=== PATIENT | female | born 1960 | race Caucasian/White ===

== ENCOUNTER 2016-12-18 10:03 | Outpatient (CLI) | payer MEDICARE ==
[2016-12-18] MEDS ORDERED: BARIUM SULFATE 135 ML BOTTLE PO ONE (11:21)
[2016-12-18] MEDS ORDERED: BARIUM SULFATE 176 GM BOTTLE PO ONE (11:21)
== END 2016-12-18 10:04 | disposition home or self-care (01) ==
DX: K22.8 Other specified diseases of esophagus (principal); K21.9 Gastro-esophageal reflux disease without esophagitis
CPT/HCPCS: 74247; A9270

== ENCOUNTER 2017-08-04 14:39 | Outpatient (CLI) | payer MEDICARE | END 2017-08-04 14:40 | disposition home or self-care (01) | LOC: SC 14:39 | PROVIDERS: ATTEND Nurse Practitioner Family | DX: G47.33 Obstructive sleep apnea (adult) (pediatric) (principal) | CPT/HCPCS: 99214; G0463; 99212 ==

== ENCOUNTER 2018-01-09 08:00 | Outpatient (CLI) | payer MEDICARE ==
[2018-01-13 12:41] LABS: CREATININE, URINE 1.55 g/24 h (0.63-2.50)
== END 2018-01-09 23:59 | disposition home or self-care (01) ==
LOC: LAB.WCP 08:00
PROVIDERS: ATTEND Family Medicine
DX: R73.01 Impaired fasting glucose (principal); E66.9 Obesity, unspecified; I10 Essential (primary) hypertension
CPT/HCPCS: 82530; 82570

== ENCOUNTER 2018-01-14 10:02 | Outpatient (CLI) | payer MEDICARE ==
--- NOTE | 2018-01-15 15:45 | MRI Report ---
EXAM: MRI BRAIN WITHOUT CONTRAST EXAM DATE: 01/14/2018 10:56 AM. CLINICAL HISTORY: Headache. Head pressure. Left-sided neck pain. COMPARISON: None. TECHNIQUE: Multiplanar, multisequence T1-weighted and fluid-sensitive MR sequences of the brain were performed. Sequences optimized for routine evaluation. Other: None. IV Contrast: None. FINDINGS: No cerebellar tonsillar ectopia is present. No abnormal diffusion signal or magnetic susceptibility is present in the brain parenchyma. Age appropriate prominence of the ventricles and sulci is noted. No extraaxial fluid collection is pr esent. Subcortical and deep white matter FLAIR hyperintensities are seen throughout the cerebral hemisphere white matter bilaterally. There is a frontal lobe predominance. No abnormal T2 or FLAIR hyperintense signal is seen in the brain stem or in either cerebellar hemisphere. Expected flow voids are seen in the major intracranial vessels at the skull base. No mass is present in either orbit. No abnormal T1 shortening is present in the brain parenchyma. No mass is present in either Meckel's cave. In expected flow void is seen in the superior sagittal si nus and in each transverse sinus. IMPRESSION: 1. No acute CVA. 2. No intracranial mass is identified by noncontrast MRI. 3. FLAIR hyperintensities in the cerebral hemisphere white matter bilaterally are nonspecific. Common ly, these are seen secondary to small vessel ischemic change or in association with certain headache syndromes. White matter lesions have been described in many other entities, including in demyelinatin g processes. No lesion typical of multiple sclerosis is identified on the current study. [facility] Referring Provider Line: [phone] SITE ID: [id number]
== END 2018-01-14 10:03 | disposition home or self-care (01) ==
LOC: DI 10:02
PROVIDERS: ATTEND Family Medicine
DX: R51 Headache (principal)
CPT/HCPCS: 70551

== ENCOUNTER 2018-02-07 09:28 | Outpatient (CLI) | payer MEDICARE ==
[2018-02-07 12:32] LABS: BASOPHILS % (AUTO) 0.8 %; EOSINOPHILS # (AUTO) 0.1 10^3/uL (0.0-0.7); EOSINOPHILS % (AUTO) 2.3 %; HGB - HEMOGLOBIN 13.6 g/dL (12.0-16.0); LYMPHOCYTES # (AUTO) 1.9 10^3/uL (1.5-3.5); LYMPHOCYTES % (AUTO) 33.9 %; MEAN CORPUSCULAR HEMOGLOBIN 27.1 pg (27.0-31.0); MEAN CORPUSCULAR HGB CONC 33.1 g/dL (32.0-36.0); MEAN CORPUSCULAR VOLUME 81.8 fL (81.0-99.0); MEAN PLATELET VOLUME 8.2 fL (7.9-10.8); MONOCYTES # (AUTO) 0.4 10^3/uL (0.0-1.0); MONOCYTES % (AUTO) 7.4 %; NEUTROPHILS # (AUTO) 3.1 10^3/uL (1.5-6.6); NEUTROPHILS % (AUTO) 55.6 %; PLT - PLATELET COUNT 215 10^3/uL (130-450); RED BLOOD COUNT 5.04 10^6/uL (4.20-5.40); RED CELL DISTRIBUTION WIDTH 15.8 % (12.0-15.0); WHITE BLOOD COUNT 5.7 x10^3/uL (4.8-10.8)
== END 2018-02-07 09:29 | disposition home or self-care (01) ==
LOC: LAB.WCP 09:28
DX: T84.84XA Pain due to internal orthopedic prosthetic devices, implants and grafts, initial encounter (principal)
CPT/HCPCS: 36415; 85025; 85651; 86140

== ENCOUNTER 2018-04-19 08:00 | Outpatient (CLI) | payer MEDICARE ==
[2018-04-19 19:09] LABS: BASOPHILS % (AUTO) 0.5 %; EOSINOPHILS # (AUTO) 0.1 10^3/uL (0.0-0.7); EOSINOPHILS % (AUTO) 1.4 %; LYMPHOCYTES # (AUTO) 1.6 10^3/uL (1.5-3.5); LYMPHOCYTES % (AUTO) 30.2 %; MEAN CORPUSCULAR HGB CONC 32.5 g/dL (32.0-36.0); MEAN CORPUSCULAR VOLUME 83.1 fL (81.0-99.0); MEAN PLATELET VOLUME 8.9 fL (7.9-10.8); MONOCYTES # (AUTO) 0.4 10^3/uL (0.0-1.0); MONOCYTES % (AUTO) 7.2 %; NEUTROPHILS # (AUTO) 3.2 10^3/uL (1.5-6.6); NEUTROPHILS % (AUTO) 60.7 %; PLT - PLATELET COUNT 185 10^3/uL (130-450); PT - PROTHROMBIN TIME 11.8 secs (9.9-12.6); RED CELL DISTRIBUTION WIDTH 15.5 % (12.0-15.0); WHITE BLOOD COUNT 5.3 x10^3/uL (4.8-10.8)
== END 2018-04-19 08:01 | disposition home or self-care (01) ==
LOC: LAB.WCP 08:00
PROVIDERS: ATTEND Plastic Surgery
DX: Z01.812 Encounter for preprocedural laboratory examination (principal)
CPT/HCPCS: 36415; 85025; 85610; 85730

== ENCOUNTER 2018-07-26 10:19 | Outpatient (CLI) | payer MEDICARE | END 2018-07-26 10:20 | disposition home or self-care (01) | LOC: SC 10:19 | PROVIDERS: ATTEND Nurse Practitioner Family | DX: G47.33 Obstructive sleep apnea (adult) (pediatric) (principal) | CPT/HCPCS: 99214; G0463; 99212 ==

== ENCOUNTER → 2018-09-21 | Outpatient (CLI) | payer MEDICARE ==
[2018-09-21 12:44] LABS: PT - PROTHROMBIN TIME 11.1 secs (9.9-12.6)
[2018-09-21 12:52] LABS: BASOPHILS % (AUTO) 0.6 %; EOSINOPHILS # (AUTO) 0.1 10^3/uL (0.0-0.7); EOSINOPHILS % (AUTO) 1.9 %; HGB - HEMOGLOBIN 13.3 g/dL (12.0-16.0); LYMPHOCYTES # (AUTO) 1.6 10^3/uL (1.5-3.5); LYMPHOCYTES % (AUTO) 29.1 %; MEAN CORPUSCULAR HEMOGLOBIN 27.2 pg (27.0-31.0); MEAN CORPUSCULAR HGB CONC 34.1 g/dL (32.0-36.0); MEAN CORPUSCULAR VOLUME 79.8 fL (81.0-99.0); MEAN PLATELET VOLUME 8.4 fL (7.9-10.8); MONOCYTES # (AUTO) 0.4 10^3/uL (0.0-1.0); MONOCYTES % (AUTO) 6.4 %; NEUTROPHILS # (AUTO) 3.4 10^3/uL (1.5-6.6); PLT - PLATELET COUNT 197 10^3/uL (130-450); RED BLOOD COUNT 4.89 10^6/uL (4.20-5.40); RED CELL DISTRIBUTION WIDTH 15.3 % (12.0-15.0); WHITE BLOOD COUNT 5.5 x10^3/uL (4.8-10.8)
== END ==
LOC: LAB.WCP 08:00
PROVIDERS: ATTEND Plastic Surgery
DX: Z01.812 Encounter for preprocedural laboratory examination (principal)
CPT/HCPCS: 36415; 85025; 85610; 85730

== ENCOUNTER 2021-02-07 10:30 | Outpatient (CLI) | payer MEDICARE | END 2021-02-07 10:31 | disposition home or self-care (01) | LOC: LAB.N 10:30 | PROVIDERS: ATTEND Internal Medicine | DX: I10 Essential (primary) hypertension (principal) ==

== ENCOUNTER 2021-07-29 12:19 | Emergency (ER) | payer MEDICARE ==
[2021-07-29 12:27] VITALS: BP 136/87
== END 2021-07-29 15:40 | disposition left against medical advice (07) ==
LOC: ED 12:19
DX: Z53.21 Procedure and treatment not carried out due to patient leaving prior to being seen by health care provider (principal)

== ENCOUNTER 2021-10-06 11:02 | Outpatient (CLI) | payer MEDICARE ==
[2021-10-06 21:43] VITALS: BP 68/42
--- NOTE | 2021-10-06 21:43 | SLEEP CARE CONSULTATION ---
Information from patient questionnaire entered by Marco Mariscal MA. I have reviewed and concur with the information entered by Marco Mariscal MA. This document represents the service I personally performed and the decisions made by me, Ce Jade MD, [facility]. History of Present Illness Service Date and Time: 10/06/2021 1102 Reason for Visit: New patient Chief Complaint: reports: Insomnia, Unrefreshed sleep, Snoring, Excessive daytime sleepiness, Observed pauses in breathing, Fatigue, Frequent awakenings at night, Other Date of Onset: 1 year Usual bedtime: 1100 pm Time it takes to fall asleep: 30 minutes Snores at night: Yes Observed to quit breathing while asleep: No Number of times waking at night: 3 - 4 times Reasons for waking at night: reports: Snoring, Gasping for air, Bathroom Toss, Turn, or Twitch while sleeping: No Recalls having dreams: Yes Usually gets out of bed at: 0800 Feels refreshed in the morning: No Morning headache: No Sleepy or fatigued during the day: Yes Ever fallen asleep while driving: No Takes day naps: Yes Dreams during day naps: Yes Prior sleep studies: Yes Year and Where: [facility] Type of Sleep Study: Polysomnography Additional HPI information: Ms. Soto returned today for annual follow up of nasal CPAP therapy. She was diagnosed to have mild obstructive sleep apnea-hypopnea syndrome. The patient stated that she stopped using her CPAP about 2 3 years ago after having lost weight. Her snore subsided. However, she regained the lost weight, and now some of her original symptoms have returned. She would like to know if she should go back to using her CPAP. Her CPAP is a Respironics System One CPAP. She has several full face masks. She has not gotten any supplies. - Parasomnia Symptoms Ever been unable to move upon waking from sleep: No Walks in sleep: No Talks in sleep: No Ever acted out dreams in sleep: No Ever felt weak in the knees when startled or emotional: No Bothered by creepy, crawly, restless sensations in legs: No Problems with memory or concentration: Yes Subjective Initial [place] Sleepiness Scale score: 8 (in 2020) Past Medical History Past Medical History: reports: Hypertension, Arthritis, GERD Social History The patient's occupation is a RE. Patient is Single and lives in [place]. Have you smoked in the past 12 months: Yes Cigarettes per day (20/pack): 3 Years of smokin Quit date: 1979 Smoking Pack Years: 0.5 Alcohol use: No Caffeine use: Yes Caffeine amount and frequency: 1 cup x weekly Family History Family history of sleep disordered breathing: Yes Family Hx Sleep Apnea: Mother: Snoring, Sleep apnea - Treated Allergies and Home Medications Known drug allergies: No Drug allergies reviewed: Yes Home medication list reviewed: Yes Review of Systems Cardiovascular: reports: high blood pressure Respiratory: denies: shortness of breath, wheeze, sputum production, chronic cough, other Gastrointestinal: denies: heartburn, difficulty swallowing, nausea, vomitting, diarrhea, abdominal pain, other Urinary: reports: frequency Neurological: reports: headaches Psychiatric: denies: Attention Deficit Hyperactivity, anxiety, depression, mood disorder, claustrophobia, other Ear/Nose/Throat: reports: dry mouth/throat Endocrine: reports: sluggishness, increased urination Musculoskeletal: reports: joint pain, back pain, joint swelling, muscle pain or cramping Immunologic: reports: itching Physical Exam Vital signs obtained and entered by: Steve MARISCAL CMA AAMA Blood Pressure: 68/42 (left, has (normal) low blood pressure) Cuff size: wrist Heart Rate: 60 O2 Saturation: 98 (with face shield) Height: 5 ft 6 in Weight: 250 lb (with winter clothes) Weight change since last visit: gained over . Kira SWIFT Body Mass Index: 40.3 BMI Classification: Morbidly Obese Impression and Plan IMPRESSION: 1. Obstructive Sleep Apnea-Hypopnea Syndrome, mild (AHI was 7.8) with presently untreated. She has not used her CPAP for over 3 years. Now, she has regained the lost weight and snores loudly again. She also appears to be symptomatic for frequent awakenings, unrefreshed sleep, persistent fatigue, and excessive daytime sleepiness. Therefore, in order to get her new equipment, I will repeat the sleep study to confirm the diagnosis. PLAN: 1. Repeat the sleep studyeither in-laboratory polysomnography or home sleep apnea test (HSAT). 2. Try to lose weight 3. Return for follow up after the sleep study. Follow up with Sleep Care in: 1-2 months Follow up recommended for: Weight management Visit Type: In Office Time Spent with Patient (minutes): 15 Provider Statement: I spent 100% of the Face to Face Visit with the patient with greater than 50% spent counseling the patient and coordination of care.
== END 2021-10-06 11:03 | disposition home or self-care (01) ==
LOC: SC 11:02
PROVIDERS: ATTEND Internal Medicine Pulmonary Disease
DX: G47.33 Obstructive sleep apnea (adult) (pediatric) (principal); F17.210 Nicotine dependence, cigarettes, uncomplicated; E66.01 Morbid (severe) obesity due to excess calories; Z68.41 Body mass index [BMI] 40.0-44.9, adult
CPT/HCPCS: 99202; G0463; 99212

== ENCOUNTER 2021-10-08 10:31 | Outpatient (CLI) | payer MEDICARE | END 2021-10-08 10:32 | disposition home or self-care (01) | LOC: SC 10:31 | PROVIDERS: ATTEND Internal Medicine Pulmonary Disease | DX: G47.33 Obstructive sleep apnea (adult) (pediatric) (principal); R09.02 Hypoxemia | CPT/HCPCS: G0399 ×2; 95806 ==

== ENCOUNTER 2021-11-03 11:01 | Outpatient (CLI) | payer MEDICARE ==
[2021-11-04 08:40] VITALS: BP 122/79
--- NOTE | 2021-11-04 08:40 | SLEEP CARE CONSULTATION ---
Information from patient questionnaire entered by Marco Morgan MA. I have reviewed and concur with the information entered by Marco Morgan MA. This document represents the service I personally performed and the decisions made by me, Ce Jade MD, [facility]. History of Present Illness Service Date and Time: 11/03/2021 1101 Initial [place] Sleepiness Scale score: 8 (2020) Additional HPI information: HPI: Ms. Whelan returned for follow up of the home sleep apnea test (HSAT) she had on 10/08/21. The test showed mild obstructive sleep apnea-hypopnea with an AHI of 6.2/hr and jer SaO2 of 82%. During the study, the patient had 20 apneas (20 obstructive, 0 central, 0 mixed) and 30 hypopneas. The longest episode lasted 65.5 seconds. The respiratory events occurred independently of body position (supine AHI was 1.2 and non-supine, 6.82). Hypoxemia was mild, with the lowest oxygen saturation of 82 % and 5.4 minutes with SaO2 under 90%. Baseline oxygen saturation was normal (Average oxygen saturation was 95%). The patient was informed of these findings. I explained to her the pathophysiology behind obstructive sleep apnea. We then spent quite a bit of time discussing different treatment options. The patient used a CPAP for several years but quit when she lost weight. Now that she regained weight, she would like to go back on the treatment. Her old equipment came from [facility]. Allergies and Home Medications Drug allergies reviewed: Yes Home medication list reviewed: Yes Review of Systems Review of systems same as previous: Yes Physical Exam Vital signs obtained and entered by: JAMISON NOEL Blood Pressure: 122/79 (left) Cuff size: wrist Heart Rate: 62 O2 Saturation: 98 (with mask) Height: 5 ft 6 in Weight: 249 lb (with clothes) Body Mass Index: 40.1 BMI Classification: Morbidly Obese Impression and Plan IMPRESSION: 1. Obstructive Sleep Apnea-Hypopnea Syndrome, mild, associated with mild hypoxemia. Possibly, this is the cause of the patients symptoms of unrefreshed sleep, and excessive daytime sleepiness. As mentioned above, the patient will be started on an autoCPAP set between 8 and 15 cmH2O. Depending on her response and compliance she may be brought back for an overnight CPAP titration study. PLAN: 1. Prescription made for an autoCPAP, heated humidifier, and related supplies. She used a full face mask. She would like to use [facility]. 2. Attempt to lose weight. 3. Return for follow up after one month of using the CPAP. Prescriptions: Auto CPAP Follow up with Sleep Care in: 1-2 months Visit Type: In Office Time Spent with Patient (minutes): 15 Provider Statement: I spent 100% of the Face to Face Visit with the patient with greater than 50% spent counseling the patient and coordination of care.
== END 2021-11-03 11:02 | disposition home or self-care (01) ==
LOC: SC 11:01
PROVIDERS: ATTEND Internal Medicine Pulmonary Disease
DX: G47.33 Obstructive sleep apnea (adult) (pediatric) (principal); E66.01 Morbid (severe) obesity due to excess calories; Z68.41 Body mass index [BMI] 40.0-44.9, adult
CPT/HCPCS: 99212; G0463

== ENCOUNTER 2022-01-28 10:13 | Outpatient (CLI) | payer MEDICARE ==
[2022-01-28 10:42] VITALS: BP 130/73
--- NOTE | 2022-01-28 10:42 | SLEEP CARE CONSULTATION ---
Information from patient questionnaire entered by Marco Morgan MA. I have reviewed and concur with the information entered by Marco Morgan MA. This document represents the service I personally performed and the decisions made by , Amanda Leung ARNP. History of Present Illness Service Date and Time: 01/28/2022 1013 Previous diagnosis: Mild, Obstructive Sleep Apnea-Hypopnea Syndrome AHI: 6.2 (in 2020) Reason for follow up: first compliance (12/16 SET UP DATE) Equipment type: CPAP Equipment obtained from: Other ([facility] in [place]; got initial supplies) Mask style: Full face Backup mask available: No (will keep old mask when replaced) Last cushion change: 1 month Prior sleep studies: Yes Year and Where: 09/2021 [facility] Type of Sleep Study: Home sleep study HPI additional information: OTONIEL GOODEN was diagnosed to have mild, AHI 6.2, obstructive sleep apnea- hypopnea syndrome and returned today for CPAP therapy first compliance follow- up. CPAP Compliance Data - Data Reviewed with Patient Average duration of nightly device use: 7 HOURS 40 MINUTES Compliance rate %: 90 Current pressure setting (cmH2O): 8-15 (median 8.9, avg 10.7 and max 11.8) Average residual AHI: 0.8 Central apnea: .0 Obstructive apnea: .3 Average large leak: 4.4 Subjective Patient concerns: reports: condensation in mask/hose (once when turned off heated hose). denies: aerophagia, mask discomfort, air blowing in eyes, mask leak noise, nasal congestion, dry mouth, nose, throat, epistaxis Observed to snore while using device: No Current pressure setting perceived as: comfortable On therapy, patient: reports: sleeping better, awakening more refreshed, being more awake and alert during the day, more rested overall. denies: drowsiness while driving Initial [place] Sleepiness Scale score: 8 (2020) Current [place] Sleepiness Scale score: 9 (01/2022) Allergies and Home Medications Home medication list reviewed: Yes (no changes) Allergy and home medication list: Allergies No Known Drug Allergies Allergy (Verified 07/29/21 12:27) Review of Systems Review of systems same as previous: Yes (no changes) Physical Exam Vital signs obtained and entered by: JAMISON NOEL Blood Pressure: 130/73 (right, pulse 44, resp 14,) Heart Rate: 72 O2 Saturation: 97 (cloth mask) Height: 5 ft 6 in Weight: 247 lb Weight change since last visit: 2 lb loss Body Mass Index: 39.9 BMI Classification: Obese Impression and Plan 1. Obstructive Sleep Apnea-Hypopnea Syndrome, mild, with good treatment compliance and excellent apnea control. On CPAP therapy, the patient has better sleep quality and is more rested overall. Patient feels the pressure is comfortable and would like to keep pressure at 8-15 cmH2O. No pressure changes made today. Patient's apnea severity and rationale for treatment to reduce apnea, improve sleep quality and reduce cardiovascular and cerebrovascular events was reviewed. I also reviewed the benefit of consistent device use of CPAP for hypertension and gastric reflux. 2. Obesity, unspecified. Patient has lost weight. Currently patients BMI is 39.9. Obesity increases the risk of apnea, CPAP pressure requirements and overall health risks especially cardiovascular and diabetes. Thus patient is advised to continue to try to lose weight. Weight loss can be done with reducing portion size, reducing refined foods and balancing content with vegetables, fruit and whole grain foods. In addition, patient encouraged to get regular exercise. The patient's CPAP pressure range should accommodate some weight loss. * Continue auto CPAP pressure at 8-15 cmH2O * Notify me if snoring with mask or feeling that the pressure is too much or too little * Attempt to lose weight * Call this office if any problems using CPAP * Return for follow up in 6 months, or sooner if concerns arise Counseling Topics: Spare mask, Weight loss health impact Visit Type: In Office Time Spent with Patient (minutes): 20 Provider Statement: I spent 100% of the Face to Face Visit with the patient with greater than 50% spent counseling the patient and coordination of care.
== END 2022-01-28 10:14 | disposition home or self-care (01) ==
LOC: SC 10:13
PROVIDERS: ATTEND Nurse Practitioner Family
DX: G47.33 Obstructive sleep apnea (adult) (pediatric) (principal); E66.9 Obesity, unspecified; Z68.39 Body mass index [BMI] 39.0-39.9, adult
CPT/HCPCS: 99213; G0463; 99212

== ENCOUNTER 2022-08-14 14:04 | Outpatient (CLI) | payer MEDICARE ==
--- NOTE | 2022-08-14 11:30 | SLEEP CARE CONSULTATION ---
Information from patient questionnaire entered by France Hyman. I have reviewed and concur with the information entered by France Hyman. This document represents the service I personally performed and the decisions made by me, Amanda Leung ARNP. History of Present Illness Service Date and Time: 08/14/2022 1100 Previous diagnosis: Mild, Obstructive Sleep Apnea-Hypopnea Syndrome AHI: 6.2 (in 2020) Reason for follow up: six month (LAST SEEN 01/28/22) Equipment type: CPAP (RESMED) Equipment obtained from: Other ([facility] in [place]; getting supplies as needed) Mask style: Full face ([place]) Backup mask available: Yes (old mask) Last cushion change: last week Prior sleep studies: Yes Year and Where: 09/2021 [facility] Type of Sleep Study: Home sleep study HPI additional information: OTONIEL GOODEN was diagnosed to have mild, AHI 6.2, obstructive sleep apnea- hypopnea syndrome and returned today for CPAP therapy six month follow-up. Sleep Study - Results Type of Sleep Study: Home sleep study Prior sleep studies: Yes Year and Where: 09/2021 [facility] CPAP Compliance Data - Data Reviewed with Patient Average duration of nightly device use: 8 hours, 8 minutes Compliance rate %: 99 (02/13/22 to 08/11/22; 180/180 days used) Current pressure setting (cmH2O): 8-15 Average residual AHI: 0.6 Central apnea: 0.0 Obstructive apnea: 0.3 Subjective Patient concerns: denies: aerophagia, mask discomfort, air blowing in eyes, mask leak noise, condensation in mask/hose, nasal congestion, dry mouth, nose, throat, epistaxis Observed to snore while using device: No Current pressure setting perceived as: comfortable On therapy, patient: reports: sleeping better, awakening more refreshed, being more awake and alert during the day, more rested overall. denies: drowsiness while driving Initial [place] Sleepiness Scale score: 8 (2020) Current [place] Sleepiness Scale score: 9 (2021) Allergies and Home Medications Drug allergies reviewed: Yes (NKDA) Home medication list reviewed: Yes (no changes) Allergy and home medication list: Allergies No Known Drug Allergies Allergy (Verified 07/29/21 12:27) Review of Systems Review of systems same as previous: Yes (no changes) Physical Exam Vital signs obtained and entered by: VIA PHONE Height: 5 ft 6 in Weight: 260 lb (pt reported) Body Mass Index: 41.9 BMI Classification: Morbidly Obese Impression and Plan 1. Obstructive Sleep Apnea-Hypopnea Syndrome, mild, with good treatment compliance and good apnea control. On CPAP therapy, the patient has better sleep quality and is more rested overall. Patient has significant improvement of their sleep apnea and are satisfied with current CPAP therapy. Patient sometimes feels the pressure could be a little higher at onset of night. I will adjust pressure for patient comfort to 10-15 cm H2O. Patient will let me know if this change is uncomfortable for further adjustments as needed. Patient denies problems with oral dryness, nasal congestion, epistaxis, skin irritation or aerophagia. P atient's apnea severity and rationale for treatment to reduce apnea, improve sleep quality and reduce cardiovascular and cerebrovascular events was reviewed. I also reviewed the benefit of consistent device use of CPAP for hypertension and gastric reflux. 2. Obesity, unspecified. Currently patients BMI is 41.9. Obesity increases the risk of apnea, CPAP pressure requirements and overall health risks especially cardiovascular and diabetes. Thus patient is advised to to lose weight. Weight loss can be done with reducing portion size, reducing refined foods and balancing content with vegetables, fruit and whole grain foods. In addition, patient encouraged to get regular exercise. * Change auto CPAP pressure to 10-15 cmH2O * Update supplies * Notify me if snoring with mask or feeling that the pressure is too much or too little * Attempt to lose weight * Call this office if any problems using CPAP * Return for follow up in 1 year, or sooner if concerns arise Counseling Topics: Spare mask, Weight loss health impact Visit Type: Telehealth Video ([phone]) Video Type: Doximity Patient Location: Home Location of Provider: Office Patient agrees and consents to this telehealth visit type: Yes Patient agrees to have their insurance billed: Yes Time Spent with Patient (minutes): 10 Provider Statement: I spent 100% of the Telehealth Video Call with the patient with greater than 50% spent counseling the patient and coordination of care.
== END 2022-08-14 14:05 | disposition home or self-care (01) ==
LOC: SC 14:04
PROVIDERS: ATTEND Nurse Practitioner Family
DX: G47.33 Obstructive sleep apnea (adult) (pediatric) (principal); E66.01 Morbid (severe) obesity due to excess calories; Z68.41 Body mass index [BMI] 40.0-44.9, adult